=== PATIENT | female | born 1980 | race Caucasian/White ===

== ENCOUNTER 2017-04-16 13:15 | Inpatient (IN) | payer OTHER ==
[~2017-04-16] VITALS: Ht 160 cm; Wt 65.3 kg
[~2017-04-16 13:15] MED LIST: CITRANATAL B-C1 EAC1; GAS RELIEF 8080 MG
[2017-05-04] MEDS ORDERED: PRENATAL TABLE1 EACH PO (14:50)
[2017-05-04] MEDS ORDERED: PRENATAL TABLE1 EAC2 PO (14:52)
[2017-05-04] MEDS ORDERED: IRON325 MG PO (14:52)
[2017-05-06] MEDS ORDERED: SIDEROL TABLET1 EACH PO (08:41)
== END 2017-05-06 10:50 | disposition home or self-care (01) | DRG 775 ==
LOC: LDR 05-04 11:19 → SURG-SUITE 05-04 19:00 → OB/GYN 05-10 13:15
PROC: 10E0XZZ Delivery of Products of Conception, External Approach (ICD-10-PCS; principal; 2017-05-04)
PROC: 4A1HXCZ Monitoring of Products of Conception, Cardiac Rate, External Approach (ICD-10-PCS; 2017-05-04)
PROC: 4A033R1 Measurement of Arterial Saturation, Peripheral, Percutaneous Approach (ICD-10-PCS; 2017-05-04)
PROC: 10907ZC Drainage of Amniotic Fluid, Therapeutic from Products of Conception, Via Natural or Artificial Opening (ICD-10-PCS; 2017-05-04)
DX: O80 Encounter for full-term uncomplicated delivery (principal); Z37.0 Single live birth; Z3A.39 39 weeks gestation of pregnancy

== ENCOUNTER 2017-05-04 10:46 | Outpatient (CLI) | payer OTHER ==
[2017-05-04] MEDS ORDERED: PRENATAL TABLE1 EACH PO (14:50)
[2017-05-04] MEDS ORDERED: PRENATAL TABLE1 EAC2 PO (14:52)
[2017-05-04] MEDS ORDERED: IRON325 MG PO (14:52)
== END 2017-05-04 11:46 | disposition still patient (30) ==
LOC: OBS/DEL 10:46
DX: O47.1 False labor at or after 37 completed weeks of gestation (principal); Z3A.39 39 weeks gestation of pregnancy

== ENCOUNTER → 2019-11-12 | Outpatient (CLI) | payer OTHER ==
[~2019-11-12] MED LIST changes: +IRON325 MG PO; +PRENATAL TABLE1 EAC2 PO; +PRENATAL TABLE1 EACH PO; +SIDEROL TABLET1 EACH PO
== END | disposition home or self-care (01) ==
LOC: PRENATAL 09:53
PROVIDERS: ATTEND Specialist
DX: O35.3XX1 Maternal care for (suspected) damage to fetus from viral disease in mother, fetus 1 (principal); O09.523 Supervision of elderly multigravida, third trimester; O35.0XX1 Maternal care for (suspected) central nervous system malformation in fetus, fetus 1

== ENCOUNTER 2020-03-01 06:34 | Inpatient (IN) | payer OTHER ==
[~2020-03-01] VITALS: Ht 160 cm; Wt 66.2 kg
[2020-03-01] MEDS ORDERED: PANTOPRAZOLE SO40 MG (16:25)
== END 2020-03-03 18:45 | DRG 807 ==
LOC: SURG-SUITE 06:34 → LDR 06:34 → SURG-SUITE 14:39
PROVIDERS: ADMIT Specialist; ATTEND Specialist
PROC: 10E0XZZ Delivery of Products of Conception, External Approach (ICD-10-PCS; principal; 2020-03-01)
PROC: 4A0HXFZ Measurement of Products of Conception, Cardiac Rhythm, External Approach (ICD-10-PCS; 2020-03-01)
DX: O80 Encounter for full-term uncomplicated delivery (principal); Z37.0 Single live birth; Z3A.39 39 weeks gestation of pregnancy; Z20.828 Contact with and (suspected) exposure to other viral communicable diseases